=== PATIENT | female | born 1960 | race Caucasian/White ===

== ENCOUNTER 2019-06-05 18:19 | Emergency (ER) | payer BC ==
--- NOTE | 2019-06-05 19:41 | ER Document Report ---
ED Medical Screen (RME) - Related Data Home Medications: Sudafed every day continuously <KARLA ALFREDO - Last Filed: 06/05/19 19:39> <PAULO MORENO - Last Filed: 06/05/19 20:57> - General Chief Complaint: Palpitations Stated Complaint: SHORTNESS OF BREATH Time Seen by Provider: 06/05/19 19:38 Notes: Patient is a 58-year-old female who presents to the emergency department with a chief complaint of palpitations. Patient reports around 5 PM she was standing in the kitchen cooking dinner when she became very clammy and confused. Patient reports she felt she was going to pass out. Patient reports she did not have chest pain but felt like her heart stopped briefly. Patient reports she did not pass out. Patient reports she has had palpitations for the past few days. Patient reports she did eat afterwards but did not feel much better. Patient reports EMS did arrive and give her some IV fluids which did seem to help with her symptoms. Patient concerned she may be dehydrated. (KARLA ALFREDO) - Related Data Allergies/Adverse Reactions: No Known Allergies Allergy (Unverified 06/05/19 19:22) Physical Exam - Cardiovascular Rhythm: Regular Heart sounds: Normal auscultation, S1 appreciated, S2 appreciated <KARLA ALFREDO - Last Filed: 06/05/19 19:39> - Vital signs Vitals: Temp Pulse Resp BP Pulse Ox 98.0 F 87 18 111/62 98 06/05/19 19:11 06/05/19 19:11 06/05/19 19:11 06/05/19 19:11 06/05/19 19:11 Course <KARLA ALFREDO - Last Filed: 06/05/19 19:39> - Laboratory Result Diagrams: 06/05/19 12:50 06/05/19 12:50 - EKG Interpretation by Me EKG shows normal: Sinus rhythm, [place], Intervals Rate: Normal Rhythm: PVC's <PAULO MORENO - Last Filed: 06/05/19 20:57> - Re-evaluation Re-evalutation: 06/05/19 19:41 I have greeted and performed a rapid initial assessment of this patient. A comprehensive ED assessment and evaluation of the patient, analysis of test results and completion of the medical decision making process will be conducted by additional ED providers. (KARLA ALFREDO) - Vital Signs Vital signs: Temp Pulse Resp BP Pulse Ox 97.8 F 71 16 111/70 98 06/05/19 20:44 06/05/19 20:44 06/05/19 20:44 06/05/19 20:44 06/05/19 20:44 - Laboratory Laboratory results interpreted by me: 06/05/19 06/05/19 12:50 12:50 Lymph % (Auto) 50.9 H Absolute Neuts (auto) 1.6 L Seg Neutrophils % 37.8 L Sodium 136.5 L - EKG Interpretation by Me Additional EKG results interpreted by me: 06/05/19 20:56 T wave inversions in V1, V2, aVR (PAULO MORENO)
[2019-06-05 20:04] LABS: ALBUMIN 4.5 g/dL (3.5-5.0); ALKALINE PHOSPHATASE 70 U/L (38-126); ANION GAP 12 (5-19); ASPARTATE AMINO TRANSFERASE 26 U/L (14-36); BILIRUBIN,DIRECT 0.2 mg/dL (0.0-0.4); BILIRUBIN,TOTAL 0.5 mg/dL (0.2-1.3); BLOOD UREA NITROGEN 13 mg/dL (7-20); CALCIUM 9.7 mg/dL (8.4-10.2); CARBON DIOXIDE 26 mmol/L (22-30); CHLORIDE 99 mmol/L (98-107); GLUCOSE 94 mg/dL (75-110); POTASSIUM 3.7 mmol/L (3.6-5.0); TOTAL PROTEIN 7.5 g/dL (6.3-8.2)
[2019-06-05 20:06] LABS: ABSOLUTE EOSINOPHILS # (AUTO) 0.1 10^3/uL (0.0-0.6); ABSOLUTE LYMPHOCYTES (AUTO) 2.2 10^3/uL (0.5-4.7); ABSOLUTE MONOCYTES (AUTO) 0.3 10^3/uL (0.1-1.4); ABSOLUTE NEUT (AUTO) 1.6 10^3/uL (1.7-8.2); BASOPHILS % (AUTO) 0.8 % (0-2); EOSINOPHILS % (AUTO) 2.8 % (0-6); HEMATOCRIT 39.2 % (36.0-47.0); HEMOGLOBIN 13.4 g/dL (12.0-15.5); LYMPHOCYTES % (AUTO) 50.9 % (13-45); MEAN CORPUSCULAR HEMOGLOBIN 32.1 pg (27.0-33.4); MEAN CORPUSCULAR HGB CONC 34.3 g/dL (32.0-36.0); MEAN CORPUSCULAR VOLUME 94 fl (80-97); MONOCYTES % (AUTO) 7.7 % (3-13); PLATELET COUNT 250 10^3/uL (150-450); RED BLOOD COUNT 4.19 10^6/uL (3.72-5.28); RED CELL DISTRIBUTION WIDTH 13.6 % (11.5-14.0); SEGMENTED NEUTROPHILS % (AUTO) 37.8 % (42-78); TOTAL CELLS COUNTED % (AUTO) 100 %; WHITE BLOOD COUNT 4.2 10^3/uL (4.0-10.5)
--- NOTE | 2019-06-05 21:12 | ER Document Report ---
ED General - General Chief Complaint: Palpitations Stated Complaint: SHORTNESS OF BREATH Time Seen by Provider: 06/05/19 19:38 Mode of Arrival: Ambulatory Information source: Patient - HPI Onset: Other - has been happening nearly daily for a week but she has had palpitations off and on for years Onset/Duration: Sudden Quality of pain: No pain Severity: Moderate Pain Level: Denies Associated symptoms: Other - Dizziness, Light Headedness Exacerbated by: Other - energey drinks, caffeine, stress Relieved by: Other - slow breathing, sitting down Similar symptoms previously: Yes - patient has had these off and on for years Recently seen / treated by doctor: No Notes: 58 year old female with a history of palpitations off and on for years here for palpitations and feeling dizzy and light headed like she may pass out. The patie nt says she has had palpitations off and on for yeas but they usually dont happen often. The patient says she has not felt palpitations for years and then this week she has noticed them every day. Today was particularly bad and she had the so much she felt like she was going to pass out and she felt somewhat short of breath. The patient denies chest pain. - Related Data Allergies/Adverse Reactions: No Known Allergies Allergy (Unverified 06/05/19 19:22) Home Medications: Sudafed every day continuously Past Medical History - General Information source: Patient - Social History Smoking Status: Never Smoker Cigarette use (# per day): No - patient does Vape however Frequency of alcohol use: Social Drug Abuse: None Lives with: Family Family History: Reviewed & Not Pertinent Patient has suicidal ideation: No Patient has homicidal ideation: No - Past Medical History Cardiac Medical History: Reports: Other - Palpitations Past Surgical History: Reports: Hx Tonsillectomy Review of Systems - Review of Systems Constitutional: No symptoms reported EENT: No symptoms reported Cardiovascular: Palpitations, Heart racing, Dizziness, Other - feels pre- syncopal Respiratory: Short of breath Gastrointestinal: No symptoms reported Genitourinary: No symptoms reported Female Genitourinary: No symptoms reported Musculoskeletal: No symptoms reported Skin: No symptoms reported Hematologic/Lymphatic: No symptoms reported Neurological/Psychological: No symptoms reported Physical Exam - Vital signs Vitals: Temp Pulse Resp BP Pulse Ox 98.0 F 87 18 111/62 98 06/05/19 19:11 06/05/19 19:11 06/05/19 19:11 06/05/19 19:11 06/05/19 19:11 - Notes Notes: GENERAL: Well-appearing, well-nourished and in no acute distress. HEAD: Atraumatic, normocephalic. EYES: Pupils equal round and reactive to light, extraocular movements intact, sclera anicteric, conjunctiva are normal. ENT: TMs normal, nares patent, oropharynx clear without exudates. Moist mucous membranes. NECK: Normal range of motion, supple without lymphadenopathy or JVD. LUNGS: Breath sounds clear to auscultation bilaterally and equal. No wheezes rales or rhonchi. HEART: Regular rate and rhythm without murmurs, rubs or gallops. ABDOMEN: Soft, nontender, normoactive bowel sounds. No guarding, no rebound. No masses appreciated. EXTREMITIES: Normal range of motion, no pitting or edema. No clubbing or cyanosis. NEUROLOGICAL: Cranial nerves II through XII grossly intact. Normal speech, normal gait. PSYCH: Normal mood, normal affect. SKIN: Warm, Dry, normal turgor, no rashes or lesions noted. Course - Re-evaluation Re-evalutation: 06/05/19 21:14 The patient sounds like she has had palpitations off and on for years now but this week they have become more frequent. Patient has PVCs on her EKG and on her monitoring tech. Patient's labs are unremarkable including K, Mg, TSH, Trop. Patient told to cut back on caffeine containing beverages and to do her best to avoid stress.Will refer patient to Cardiology as she may benefit from follow with them and she may benefit from a Holter or Event Monitor. 06/05/19 21:57 - Vital Signs Vital signs: Temp Pulse Resp BP Pulse Ox 97.8 F 71 16 111/70 98 06/05/19 20:44 06/05/19 20:44 06/05/19 20:44 06/05/19 20:44 06/05/19 20:44 - Laboratory Result Diagrams: 06/05/19 12:50 06/05/19 12:50 Laboratory results interpreted by me: 06/05/19 06/05/19 12:50 12:50 Lymph % (Auto) 50.9 H Absolute Neuts (auto) 1.6 L Seg Neutrophils % 37.8 L Sodium 136.5 L - EKG Interpretation by Me EKG shows normal: Sinus rhythm, [place], Intervals, QRS Complexes Rate: Normal Rhythm: NSR, PVC's Discharge - Discharge Clinical Impression: Palpitations, Pre-syncope Condition: Stable Disposition: HOME, SELF-CARE Instructions: Palpitations (Irregular or Rapid Heartrate) ([facility]), Near Syncopal Episode ([facility]) Additional Instructions: Follow up with a Mat Tester such as Dr. De Los Santos or Dr. Baldwin. Avoid Energy Drinks and Drinks with Caffeine. Also try to avoid stressful situation. You seem to be having PVCs. Tell your primary care doctor and the Mat Tester you follow up with that you had blood work including a CBC, BMP, Troponin, and TSH which were all normal. Referrals: CYRUS DE LOS SANTOS MD [ACTIVE STAFF] - Follow up as needed JIMMY BALDWIN MD [ACTIVE STAFF] - Follow up as needed
[2019-06-05 22:13] VITALS: BP 115/85
--- NOTE | 2019-06-05 22:15 | EKG REPORT ---
SEVERITY:- ABNORMAL ECG - SINUS RHYTHM VENTRICULAR PREMATURE COMPLEX PROBABLE LEFT ATRIAL ABNORMALITY NONSPECIFIC T ABNORMALITIES, ANT-LAT LEADS : Confirmed by: Fely Barksdale 05-Jun-2019 22:13:47
== END 2019-06-05 22:13 | disposition home or self-care (01) ==
LOC: ER 18:19
DX: R00.2 Palpitations (principal); R55 Syncope and collapse; I49.3 Ventricular premature depolarization; R42 Dizziness and giddiness; R06.02 Shortness of breath; Z79.899 Other long term (current) drug therapy; Z72.0 Tobacco use
CPT/HCPCS: 36415; 80053; 83735; 84443; 84484; 85025; 93005; 93010; 99285